=== PATIENT | male | born 1980 | race Caucasian/White ===

== ENCOUNTER 2021-01-17 17:00 | Emergency (ER) | payer OTHER, SELFPAY ==
[2021-01-17 17:12] VITALS: BP 151/110; PULSE 113; RESP 18; TEMP 36.3; O2SAT 100
--- NOTE | 2021-01-17 18:46 | ED.GENADULT ---
HPI - General Adult General Chief complaint: Skin/Abscess/Foreign Body Stated complaint: Rash Time Seen by Provider: 01/17/21 17:51 Source: patient Mode of arrival: ambulatory Limitations: no limitations History of Present Illness HPI narrative: Patient presents with chief complaint of red raised rash to his cheeks and chest over the past few days. Patient states that he is not sure what has caused his symptoms. Patient has not tried anything to alleviate his symptoms. Patient denies swelling of his mouth or throat. He denies any chest pain or shortness of breath. Related Data Allergies Allergy/AdvReac Type Severity Reaction Status Date / Time shellfish derived Allergy Difficulty Verified 01/17/21 17:17 Breathing cat grass Allergy Unknown Uncoded 01/17/21 17:19 Review of Systems Review of Systems: CONSTITUTIONAL: Denies fever, chills, or sweats. EYES: Denies visual changes, redness, or discharge. ENT: Denies rhinorrhea, congestion, sore throat, or otalgia. CARDIOVASCULAR: Denies chest pain, palpitations, or edema. RESPIRATORY: Denies cough or dyspnea. GASTROINTESTINAL: Denies abdominal pain, nausea, vomiting, or diarrhea. GENITOURINARY: Denies dysuria or hematuria. SKIN: Reports rash MUSCULOSKELETAL: Denies back pain, joint pain, or myalgia. NEUROLOGIC: Denies headache, numbness, dizziness, or weakness. PSYCHIATRIC: Denies anxiety or depression. Exam Narrative: GENERAL: Well-appearing, well-nourished, and in no acute distress. HEAD: Normocephalic, atraumatic. EYES: PERRLA and EOMI. ENT: Nares clear, no rhinorrhea or epistaxis. Mucous membranes moist. Oropharynx without tonsillar hypertrophy exudate or other lesions. Bilateral TMs pearly buenrostro nonbulging NECK: Supple. No adenopathy or masses. CHEST: Clear to auscultation. No respiratory distress. No wheezes rales or rhonchi HEART: Regular rate and rhythm. EXTREMITIES: Normal range of motion. No edema. SKIN: Warm raised papular rash to cheeks in chest. No signs of abscess or infection. No crusting or drainage. Warm, dry, no rash. NEURO: No focal deficits. Alert and oriented x3. PSYCH: Normal mood and affect. Course Vital Signs Vital signs: Vital Signs Temperature 97.4 F L 01/17/21 17:12 Pulse Rate 113 H 01/17/21 17:12 Respiratory Rate 18 01/17/21 17:12 Blood Pressure 151/110 H 01/17/21 17:12 Pulse Oximetry 100 01/17/21 17:12 Temperature 97.4 F L 01/17/21 17:12 Pulse Rate 113 H 01/17/21 17:12 Respiratory Rate 18 01/17/21 17:12 Blood Pressure 151/110 H 01/17/21 17:12 Pulse Oximetry 100 01/17/21 17:12 Medical Decision Making MDM Narrative Medical decision making narrative: Patient states that he does not want to be prescribed oral steroids as he does not have the money for the medication at this time. He would like a steroid injection. Discussed with the patient that if topical steroids are needed and he may have to follow-up with his primary care if so. Discussed the need to follow-up for evaluation of thoracic symptoms persist. Discussed the need to return to emergency department immediately if he develops any emergent symptoms such as swelling of his mouth or throat. Vital Signs Vital Signs: Vital Signs Temperature 97.4 F L 01/17/21 17:12 Pulse Rate 113 H 01/17/21 17:12 Respiratory Rate 18 01/17/21 17:12 Blood Pressure 151/110 H 01/17/21 17:12 Pulse Oximetry 100 01/17/21 17:12 Temperature 97.4 F L 01/17/21 17:12 Pulse Rate 113 H 01/17/21 17:12 Respiratory Rate 18 01/17/21 17:12 Blood Pressure 151/110 H 01/17/21 17:12 Pulse Oximetry 100 01/17/21 17:12 Discharge Plan Discharge Clinical Impression: Contact dermatitis Qualifiers: Contact dermatitis type: unspecified Contact dermatitis trigger: unspecified trigger Qualified Code(s): L25.9 - Unspecified contact dermatitis, unspecified cause Patient Disposition: Home, Self-Care Condition: Stable Instructions: Antibiotic For
[2021-01-17] MEDS: methylPREDNISolone SOD SUCC 125 MG VIAL IM (18:49)
[2021-01-17 18:50] VITALS: BP 145/102; PULSE 102; RESP 18; O2SAT 100
--- NOTE | 2021-01-17 18:57 | PC.NURSE ---
This RN informed pt that he should follow up with primary care DrFran in regards to pts blood pressure being elevated. Pt states he understands.
== END 2021-01-17 18:58 | disposition home or self-care (01) ==
PROVIDERS: Emergency Provider Emergency Medicine
DX: L25.9 Unspecified contact dermatitis, unspecified cause (principal)
CPT/HCPCS: 96372; 99283; J2930